=== PATIENT | female | born 1940 | race Caucasian/White ===

== ENCOUNTER 2016-04-01 10:57 | Inpatient (IN) | payer MEDICARE ==
[~2016-04-01] VITALS: Ht 170.2 cm; Wt 48.0 kg
[2016-04-03] MEDS ORDERED: MEMA1TAB PO (15:33)
[2016-04-03] MEDS ORDERED: AMLO5TAB2 PO (15:33)
[2016-04-03] MEDS ORDERED: DONE5TAB7 PO (15:33)
[2016-04-10] VITALS (9 sets, daily range): BP systolic 118–154; BP diastolic 60–77; PULSE 64–98; RESP 16–20; TEMP 97.5–98; O2SAT 100
[2016-04-10] MEDS ORDERED: PHENYLEPH/NS 1000 MCG/10 ML SYR IV ONE (12:00)
[2016-04-10] MEDS ORDERED: NEOSTIGMINE METHYLSULFATE 10 MG/10 ML VIAL IV PUSH ONE (12:00)
[2016-04-10] MEDS ORDERED: ePHEDrine/NS 25 MG/5 ML SYR IV ONE (12:00)
[2016-04-10] MEDS ORDERED: PROPOFOL 200 MG/20 ML AMP IV ONE (12:00)
[2016-04-10] MEDS ORDERED: ONDANSETRON HCL 4 MG/2 ML VIAL IV PUSH ONE (12:00)
[2016-04-10] MEDS ORDERED: LIDOCAINE 1%/EPINEPHrine 1:100,000 SOLN 30 ML VIAL ONE (12:02)
[2016-04-10] MEDS ORDERED: LIDOCAINE 0.5%/EPINEPHrine 1:200,000 SOLN 50 ML VIAL ONE (12:02)
[2016-04-10] MEDS ORDERED: ceFAZolin 1,000 MG/NS 100 ML IV SCH ×2 (12:15)
[2016-04-10] MEDS ORDERED: METOPROLOL TARTRATE 25 MG TAB PO PRN (12:15)
[2016-04-10] MEDS ORDERED: METRONIDAZOLE 500 MG/100 ML ISONTONIC SOLN IV SCH (12:15)
[2016-04-10] MEDS ORDERED: LACTATED RINGER'S 1000 ML IV SCH (12:15)
[2016-04-10] MEDS ORDERED: DEXT 5%-NACL 0.9% 1000 ML INJ 1,000 ML IV SCH (12:15)
[2016-04-10] MEDS ORDERED: INSULIN HUMAN REGULAR 1,000 UNITS/10 ML VIAL SQ PRN (12:15)
[2016-04-10] MEDS ORDERED: SODIUM CHLORID 0.9% 500 ML IV SCH (12:15)
[2016-04-10] MEDS ORDERED: ALVIMOPAN 12 MG CAPSULE - On Call PO SCH (12:30)
[2016-04-10] MEDS ORDERED: FAMOTIDINE 20 MG/2 ML VIAL ONE ×2 (13:23→13:45)
[2016-04-10] MEDS ORDERED: MIDAZOLAM HCL 2 MG/2 ML VIAL ONE ×2 (13:23→13:46)
[2016-04-10] MEDS ORDERED: DEXAMETHASONE SOD PHOS 4 MG/ML VIAL ONE ×2 (13:24→13:46)
[2016-04-10] MEDS ORDERED: ACETAMINOPHEN 1000 MG/100 ML VIAL IV ONE (13:45)
[2016-04-10] MEDS ORDERED: fentaNYL CITRATE 250 MCG/5 ML AMP ONE (13:46)
[2016-04-10] MEDS ORDERED: DICLOFENAC SODIUM 37.5 MG/ML VIAL IV PUSH ONE (13:46)
[2016-04-10] MEDS ORDERED: POTASSIUM CHLOR 40 MEQ PREMIX 100 ML IV PRN (15:30)
[2016-04-10] MEDS ORDERED: ACETAMINOPHEN/HYDROcodone 325 MG/5 MG TAB PO PRN ×2 (15:30)
[2016-04-10] MEDS ORDERED: ZOLPIDEM TARTRATE 5 MG TAB PO PRN (15:30)
[2016-04-10] MEDS ORDERED: ENALAPRILAT 1.25 MG/ML VIAL IV PRN (15:30)
[2016-04-10] MEDS ORDERED: POTASSIUM CHLOR 20 MEQ PREMIX 100 ML IV PRN (15:30)
[2016-04-10] MEDS ORDERED: NALOXONE HCL 0.4 MG/ML AMP IV PRN (15:30)
[2016-04-10] MEDS ORDERED: ONDANSETRON HCL 4 MG/2 ML VIAL IV PRN (15:30)
[2016-04-10] MEDS ORDERED: Post-op Orders (for Pharmacy) MISC XX ONE (15:30)
[2016-04-10] MEDS ORDERED: MORPHINE SULFATE 30 MG/30 ML PCA IV SCH (15:30)
[2016-04-10] MEDS: PCA - TOTAL MG MORPHINE DELIVERED PER SHIFT SCH ×2 (15:30→21:14)
[2016-04-10] MEDS ORDERED: SODIUM CHLORIDE 0.9% FLUSH 5 ML FLUSH IVF PRN (15:30)
[2016-04-10] MEDS ORDERED: BENZOCAINE 6 MG/MENTHOL 10 MG LOZENGE SUCK-ON PRN (15:30)
[2016-04-10] MEDS ORDERED: D5-LR + KCL 20 MEQ INJ 1,000 ML ONE (15:34)
--- NOTE | 2016-04-10 15:47 | MH ---
cc: JO CARIAS MD,CHAU Young M.D. DATE OF ADMISSION: 04/10/2016 CHIEF COMPLAINT Rectal prolapse HISTORY OF PRESENT ILLNESS This patient at a 75-year-old female patient who came to my office with a rectal prolapse. She was brought in by her granddaughters. She is fully demented 75 years old and really cannot give me no history. Over the past four weeks or so she has been having bouts of rectal prolapse and they are reducing it taken into the emergency room a couple of times. She is really unable to give me any meaningful history. Her granddaughters are taking care of her at this point. The patient's just recently approximately a week before I saw her in early to mid March. Dr. Luis Alfredo Merino is her doctor. PAST MEDICAL HISTORY, SOCIAL HISTORY AND FAMILY HISTORY Review of systems is otherwise negative other than her dementia. PHYSICAL EXAMINATION GENERAL: Well-developed, well-nourished female in no acute distress. SKIN: Skin is warm and dry. HEAD, EYES, EARS, NOSE, AND THROAT: Extraocular muscles intact. NECK: Supple. CHEST: Clear. ABDOMEN: Soft, nontender. No masses. RECTUM: Exam reveals a full rectal prolapse. EXTREMITIES: Range of motion within normal limits. NEUROLOGIC: Grossly normal. IMPRESSION Rectal prolapse PLAN Recommend abdominal proctopexy as she will have better bowel habits. I will also do a colonoscopy on her. MD FREDA Multani/alexys /3:34 PM /3:41 PM
[2016-04-10] MEDS: D5-LR + KCL 20 MEQ INJ 1,000 ML IV SCH ×2 (16:08→21:14)
[2016-04-10] MEDS ORDERED: DO NOT ADM ANY ANTICOAGULANT DRUGS XX PRN (16:15)
[2016-04-10 16:16] LABS: BASOPHIL % 0.5 % (0.0-2.0); EOSINOPHIL # 0.1 TH/MM3 (0-0.4); EOSINOPHIL % 0.6 % (0.0-4.0); HEMATOCRIT 35.1 % (35.0-46.0); HEMO FLAGS DIFF FINAL; LYMPH % 8.1 % (9.0-44.0); LYMPHOCYTE # 0.7 TH/MM3 (1.0-4.8); MEAN CELL VOLUME 89.2 FL (80.0-100.0); MEAN CORPUSCULAR HEMOGLOBIN 30.4 PG (27.0-34.0); MEAN CORPUSCULAR HGB CONC 34.1 % (32.0-36.0); MONO % 2.9 % (0.0-8.0); NEUT % 87.9 % (16.0-70.0); PLATELET COUNT 211 TH/MM3 (150-450); RED BLOOD COUNT 3.93 MIL/MM3 (4.00-5.30); RED CELL DISTRIBUTION WIDTH 13.5 % (11.6-17.2); WHITE BLOOD COUNT 9.1 TH/MM3 (4.0-11.0)
[2016-04-10 16:50] LABS: BICARBONATE 19.3 MEQ/L (21.0-32.0); POTASSIUM 3.3 MEQ/L (3.5-5.1)
[2016-04-10] MEDS: METOCLOPRAMIDE HCL 10 MG/2 ML VIAL IVS SCH ×2 (17:12→23:56)
[2016-04-10] MEDS: DONEPEZIL HCL 5 MG TAB PO SCH (21:00)
[2016-04-10] MEDS: SODIUM CHLORIDE 0.9% FLUSH 5 ML FLUSH IVF SCH (21:13)
[2016-04-10] MEDS: metroNIDAZOLE 500 MG INJ 100 ML IV SCH (21:13)
[2016-04-10] MEDS: FUROSEMIDE 20 MG/2 ML VIAL IV SCH (21:13)
[2016-04-11] VITALS (20 sets, daily range): BP systolic 93–111; BP diastolic 43–67; PULSE 61–100; RESP 16–18; TEMP 97–98.2; O2SAT 96–100
[2016-04-11] MEDS: D5-LR + KCL 20 MEQ INJ 1,000 ML IV SCH ×3 (05:20→21:55)
[2016-04-11] MEDS: metroNIDAZOLE 500 MG INJ 100 ML IV SCH ×2 (05:24→12:14)
[2016-04-11] MEDS: PCA - TOTAL MG MORPHINE DELIVERED PER SHIFT SCH ×2 (05:25→13:55)
[2016-04-11] MEDS: METOCLOPRAMIDE HCL 10 MG/2 ML VIAL IVS SCH ×4 (05:25→22:59)
[2016-04-11 07:13] LABS: AUTOMATED NEUTROPHIL # 6.7 TH/MM3 (1.8-7.7); BASOPHIL % 0.2 % (0.0-2.0); HEMATOCRIT 33.3 % (35.0-46.0); HEMO FLAGS DIFF FINAL; LYMPH % 14.8 % (9.0-44.0); LYMPHOCYTE # 1.3 TH/MM3 (1.0-4.8); MEAN CORPUSCULAR HEMOGLOBIN 30.9 PG (27.0-34.0); MEAN CORPUSCULAR HGB CONC 34.7 % (32.0-36.0); MONO % 8.1 % (0.0-8.0); NEUT % 76.9 % (16.0-70.0); PLATELET COUNT 247 TH/MM3 (150-450); RED BLOOD COUNT 3.74 MIL/MM3 (4.00-5.30); RED CELL DISTRIBUTION WIDTH 13.4 % (11.6-17.2); WHITE BLOOD COUNT 8.8 TH/MM3 (4.0-11.0)
[2016-04-11 07:22] LABS: BICARBONATE 23.3 MEQ/L (21.0-32.0); POTASSIUM 3.4 MEQ/L (3.5-5.1)
[2016-04-11] MEDS: PANTOPRAZOLE SODIUM 40 MG VIAL IVP SCH (08:57)
[2016-04-11] MEDS: MEMANTINE HCL 5 MG TAB PO SCH (08:58)
[2016-04-11] MEDS: SODIUM CHLORIDE 0.9% FLUSH 5 ML FLUSH IVF SCH ×2 (08:58→23:01)
[2016-04-11] MEDS: ALVIMOPAN 12 MG CAPSULE - Post-op dosing PO SCH ×2 (08:58→23:00)
[2016-04-11] MEDS: amLODIPine BESYLATE 5 MG TAB PO SCH (08:58)
[2016-04-11] MEDS: FUROSEMIDE 20 MG/2 ML VIAL IV SCH ×2 (08:58→22:59)
--- NOTE | 2016-04-11 15:31 | HHI.PR ---
Subjective Remarks Pt remains confused. Baseline. Vest restraint. Pt removed dressing and got OOB unassisted. No N or V. Tolerating FLD Objective Vital Signs Date Time Temp Pulse Resp B/P Pulse Ox O2 Delivery O2 Flow Rate FiO2 04/11/16 13:55 20 04/11/16 12:43 98.2 74 18 104/58 98 04/11/16 12:27 91 04/11/16 08:28 98 Nasal Cannula 21 04/11/16 08:14 98.0 92 18 100/50 96 04/11/16 08:14 92 04/11/16 06:00 85 04/11/16 05:25 16 04/11/16 05:00 84 04/11/16 04:00 69 04/11/16 04:00 97.0 61 16 93/50 98 04/11/16 03:00 92 04/11/16 02:00 92 04/11/16 01:00 88 04/11/16 00:00 77 04/11/16 00:00 98.2 80 16 105/43 100 04/10/16 23:00 98 04/10/16 22:00 94 04/10/16 21:14 16 04/10/16 21:00 90 04/10/16 20:00 64 04/10/16 20:00 97.5 85 16 118/60 100 04/10/16 19:50 100 04/10/16 19:00 92 04/10/16 18:00 96 04/10/16 17:00 97.6 70 16 123/69 100 04/10/16 16:30 97.5 67 15 130/68 98 Nasal Cannula 2 04/10/16 16:15 69 14 132/66 99 Nasal Cannula 2 04/10/16 16:07 15 04/10/16 16:00 95 14 120/73 99 Nasal Cannula 2 04/10/16 15:45 97 16 145/79 98 Nasal Cannula 2 04/10/16 15:34 97.2 97 15 161/67 92 Simple Mask 6 I/O 04/10/16 04/10/16 04/10/16 04/11/16 04/11/16 04/11/16 06:59 14:59 22:59 06:59 14:59 22:59 Intake Total 900 ml 1144 ml Output Total 300 ml 950 ml Balance 600 ml 194 ml Intake Oral 20 ml IV Total 1124 ml Other 900 ml Output Urine Total 950 ml Estimated Blood Loss 50 ml Other 250 ml # Bowel Movements 0 Result Diagram: 04/11/1652904/11/16529 Objective Remarks VS-S Abd: flat,soft. Dressing dry. 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
--- NOTE | 2016-04-11 20:49 | MP ---
cc: ANDREW LAURENLEONCIO DATE OF SURGERY 04/10/2016 PREOPERATIVE DIAGNOSIS Rectal prolapse POSTOPERATIVE DIAGNOSIS Rectal prolapse with cystocele and cholelithiasis. PROCEDURE 1. Abdominal proctopexy 2. Partial colonoscopy 3. Uterine and bladder pexy SURGEON Dr. Avi Thomas DIRECTOR OF REGION[employer] SALES Dr. Iverson ESTIMATED BLOOD LOSS Minimal. OPERATIVE FINDINGS This patient had a full rectal prolapse. She suffers from dementia, really can give me no meaningful history. At the time of surgery, she also had a large enterocele or cystocele causing bulging from the vagina. At colonoscopy, I was able to reach the splenic flexure but I could not go any further due to extreme redundancy of her sigmoid colon. She also had an extremely redundant transverse colon on intra-abdominal exam. We did palpate her whole colon and evacuate excess air from the colon. Exploration of the abdominal cavity revealed that she did have a single good size gallstone in her gallbladder with no inflammation and liver was palpably normal as was the stomach and the remainder of the small bowel. The uterus, tubes and ovaries were all present. An abdominal proctopexy was done and when closing the wound the bladder and uterus were pexed as well. OPERATIVE TECHNIQUE The patient was placed on table in the supine position. After adequate general endotracheal anesthesia, the colonoscope was introduced through the anal canal taken to the rectum and sigmoid colon, descending colon up to the splenic flexure, but due to the redundancy of the sigmoid colon I was unable to complete the colonoscopy. The prep was good. The scope was eventually withdrawn. The abdomen and perineum were then prepped and draped in usual manner and a midline incision was made and carried out from the pubis to the umbilicus in the linea alba and the peritoneal cavity was entered with the above-mentioned findings. Because the colon was dilated from air from the colonoscopy. we decompressed that through the rectum relatively easily given her patulous anus. Once this was done, our attention was turned to the sigmoid colon. It was mobilized as was the lateral pelvic peritoneum in the retrorectal space to the pelvic floor. Once this was done, 0 Prolene sutures were used, two on each side, to suture the peritoneum bilaterally to the sacral promontory effectively pexing the rectum up to the sacral promontory. Once the sutures were placed, they were tied in place and it was felt to be a good study repair without any constriction of the rectum. The abdominal cavity was irrigated thoroughly with saline solution, aspirated dry and the bowels were replaced in the abdominal cavity in an wire setter manner and the abdominal cavity was closed in a single layer using a double-stranded #1 PDS starting at the pubis and closing the abdomen. The bladder was pexed up as was the uterus in the process of closing her fascia, pexing the uterus by grabbing each round ligament. Once the abdominal fascia was closed, the subcutaneous tissue was irrigated thoroughly with saline solution, aspirated dry and the skin was closed with running 3-0 Vicryl subcuticular suture and a dressing was applied. Sponge, needle and instrument counts were reported as correct. Estimated blood loss was minimal. The patient tolerated the procedure well and left the operating room in good condition. MD FREDA Multani/ /3:37 PM /8:36 PM
[2016-04-11] MEDS ORDERED: ALVIMOPAN 12 MG CAPSULE PO SCH (21:00)
[2016-04-11] MEDS: DONEPEZIL HCL 5 MG TAB PO SCH (23:01)
[2016-04-12] VITALS (17 sets, daily range): BP systolic 118–148; BP diastolic 63–81; PULSE 72–98; RESP 16–20; TEMP 97–99.1; O2SAT 96–99
[2016-04-12 04:55] LABS: AUTOMATED NEUTROPHIL # 6.8 TH/MM3 (1.8-7.7); BASOPHIL % 0.3 % (0.0-2.0); EOSINOPHIL # 0.1 TH/MM3 (0-0.4); EOSINOPHIL % 0.6 % (0.0-4.0); HEMATOCRIT 36.3 % (35.0-46.0); HEMO FLAGS DIFF FINAL; LYMPH % 13.8 % (9.0-44.0); LYMPHOCYTE # 1.2 TH/MM3 (1.0-4.8); MEAN CELL VOLUME 88.3 FL (80.0-100.0); MEAN CORPUSCULAR HEMOGLOBIN 30.6 PG (27.0-34.0); MEAN CORPUSCULAR HGB CONC 34.7 % (32.0-36.0); MONO % 9.1 % (0.0-8.0); NEUT % 76.2 % (16.0-70.0); PLATELET COUNT 238 TH/MM3 (150-450); RED BLOOD COUNT 4.11 MIL/MM3 (4.00-5.30); RED CELL DISTRIBUTION WIDTH 13.3 % (11.6-17.2); WHITE BLOOD COUNT 8.9 TH/MM3 (4.0-11.0)
[2016-04-12 05:10] LABS: BICARBONATE 25.1 MEQ/L (21.0-32.0); POTASSIUM 3.2 MEQ/L (3.5-5.1)
[2016-04-12] MEDS: METOCLOPRAMIDE HCL 10 MG/2 ML VIAL IVS SCH ×4 (06:00→23:25)
[2016-04-12] MEDS: ALVIMOPAN 12 MG CAPSULE - Post-op dosing PO SCH ×2 (08:56→22:00)
[2016-04-12] MEDS: amLODIPine BESYLATE 5 MG TAB PO SCH (08:56)
[2016-04-12] MEDS: SODIUM CHLORIDE 0.9% FLUSH 5 ML FLUSH IVF SCH ×2 (08:57→22:00)
[2016-04-12] MEDS: PANTOPRAZOLE SODIUM 40 MG VIAL IVP SCH (08:57)
[2016-04-12] MEDS: FUROSEMIDE 20 MG/2 ML VIAL IV SCH ×2 (08:57→21:59)
[2016-04-12] MEDS: MEMANTINE HCL 5 MG TAB PO SCH (08:57)
[2016-04-12] MEDS ORDERED: POTASSIUM CHLOR 10 MEQ PREMIX 100 ML IV SCH (10:45)
[2016-04-12] MEDS: D5-LR + KCL 20 MEQ INJ 1,000 ML IV SCH (11:15)
[2016-04-12] MEDS ORDERED: POTASSIUM CHLORIDE 25 MEQ EFFERVESCENT TAB PO ONE (14:00)
[2016-04-12] MEDS: DONEPEZIL HCL 5 MG TAB PO SCH (22:00)
[2016-04-13] VITALS (7 sets, daily range): BP systolic 116–160; BP diastolic 68–89; PULSE 82–91; RESP 16–20; TEMP 97.8–98.8; O2SAT 96–99
[2016-04-13] MEDS: D5-LR + KCL 20 MEQ INJ 1,000 ML IV SCH ×2 (01:51→11:33)
[2016-04-13] MEDS: METOCLOPRAMIDE HCL 10 MG/2 ML VIAL IVS SCH ×3 (05:48→17:53)
[2016-04-13 07:25] LABS: BICARBONATE 28.3 MEQ/L (21.0-32.0)
[2016-04-13] MEDS: MEMANTINE HCL 5 MG TAB PO SCH (08:20)
[2016-04-13] MEDS: PANTOPRAZOLE SODIUM 40 MG VIAL IVP SCH (08:20)
[2016-04-13] MEDS: FUROSEMIDE 20 MG/2 ML VIAL IV SCH (08:20)
[2016-04-13] MEDS: amLODIPine BESYLATE 5 MG TAB PO SCH (08:20)
[2016-04-13] MEDS: ALVIMOPAN 12 MG CAPSULE - Post-op dosing PO SCH ×2 (08:20→20:57)
[2016-04-13] MEDS: SODIUM CHLORIDE 0.9% FLUSH 5 ML FLUSH IVF SCH ×2 (08:21→20:57)
[2016-04-13] MEDS: DONEPEZIL HCL 5 MG TAB PO SCH (20:57)
[2016-04-14] VITALS: BP 137/82; PULSE 94; RESP 20; TEMP 97.8; O2SAT 97
[2016-04-14] MEDS: METOCLOPRAMIDE HCL 10 MG/2 ML VIAL IVS SCH ×3 (00:29→11:24)
[2016-04-14] MEDS: D5-LR + KCL 20 MEQ INJ 1,000 ML IV SCH (00:29)
[2016-04-14 08:12] VITALS: BP 160/80; PULSE 82; RESP 17; TEMP 97.5; O2SAT 98
[2016-04-14] MEDS: amLODIPine BESYLATE 5 MG TAB PO SCH (08:21)
[2016-04-14] MEDS: ALVIMOPAN 12 MG CAPSULE - Post-op dosing PO SCH (08:21)
[2016-04-14] MEDS: PANTOPRAZOLE SODIUM 40 MG VIAL IVP SCH (08:21)
[2016-04-14] MEDS: MEMANTINE HCL 5 MG TAB PO SCH (08:21)
[2016-04-14] MEDS: SODIUM CHLORIDE 0.9% FLUSH 5 ML FLUSH IVF SCH (08:22)
--- NOTE | 2016-04-14 09:58 | HHI.DCPOC ---
Discharge Care Plan Diagnosis: (1) Rectal prolapse (2) Abdominal Proctopexy Your Health Problems Are: Incision/Drains Appetite Changes Irregular Bowel Function Exercise Tolerance Goals to Promote Your Health * To prevent worsening of your condition and complications * To maintain your health at the optimal level Directions to Meet Your Goals Take your medications as prescribed Follow your dietary instruction Follow activity as directed Keep your appointments as scheduled Take your immunizations and boosters as scheduled If your symptoms worsen call your PCP, if no PCP go to Urgent Care Center or Emergency Room Smoking is Dangerous to Your Health. Avoid second hand smoke Call the 24-hour hour crisis hotline for domestic abuse at Vince Thomas MD Apr 14, 2016 09:57
[2016-04-14] MEDS ORDERED: BISACODYL 10 MG SUPP RECTAL ONE (10:00)
--- NOTE | 2016-04-14 10:02 | HHI.PR ---
Subjective . Still mildly confused. No BMs but urinating well. Objective . VS-S Abd: soft,flat Assessment/Plan . Stable POD#4 D/C today home or assisted living depending on family desires. Vince Thomas MD Apr 14, 2016 10:02
[2016-04-14] MEDS ORDERED: MAGNESIUM HYDROXIDE SUSP 30 ML CUP PO ONE (10:15)
[2016-04-14 12:00] VITALS: BP 155/70; PULSE 86; RESP 17; TEMP 97.9; O2SAT 98
== END 2016-04-14 13:54 | disposition home or self-care (01) | DRG 331 ==
LOC: HSDI 04-10 11:40 → EDUNIT# 04-10 13:30 → HCIN 04-10 16:52 → N07A 04-13 00:35
PROVIDERS: ADMIT Colon & Rectal Surgery; ATTEND Colon & Rectal Surgery
PROC: 0TSB0ZZ Reposition Bladder, Open Approach (ICD-10-PCS; 2016-04-10)
PROC: 0DJD8ZZ Inspection of Lower Intestinal Tract, Via Natural or Artificial Opening Endoscopic (ICD-10-PCS; 2016-04-10)
PROC: 0DSP0ZZ Reposition Rectum, Open Approach (ICD-10-PCS; principal; 2016-04-10 13:48)
PROC: 0US90ZZ Reposition Uterus, Open Approach (ICD-10-PCS; 2016-04-10 13:48)
DX: K62.3 Rectal prolapse (principal); F03.90 Unspecified dementia, unspecified severity, without behavioral disturbance, psychotic disturbance, mood disturbance, and anxiety; N81.10 Cystocele, unspecified; K80.20 Calculus of gallbladder without cholecystitis without obstruction; Z78.1 Physical restraint status
CPT/HCPCS: 80048; 85025; 86850; 86900; 86901; 94150; C9113; J0131; J0690; J1100; J1130; J1940; J2250; J2270; J2370; J2405; J2710; J2765; J3010; J3480

== ENCOUNTER → 2016-04-03 | Outpatient (CLI) | payer MEDICARE ==
[~2016-04-03] MED LIST: AMLO5TAB2 PO; DONE5TAB7 PO; MEMA1TAB PO
[2016-04-03 12:05] LABS: AUTOMATED NEUTROPHIL # 3.6 TH/MM3 (1.8-7.7); BASOPHIL % 0.9 % (0.0-2.0); EOSINOPHIL # 0.1 TH/MM3 (0-0.4); EOSINOPHIL % 2.1 % (0.0-4.0); HEMATOCRIT 37.9 % (35.0-46.0); HEMO FLAGS DIFF FINAL; LYMPH % 24.6 % (9.0-44.0); LYMPHOCYTE # 1.3 TH/MM3 (1.0-4.8); MEAN CELL VOLUME 89.4 FL (80.0-100.0); MEAN CORPUSCULAR HEMOGLOBIN 30.8 PG (27.0-34.0); MEAN CORPUSCULAR HGB CONC 34.4 % (32.0-36.0); NEUT % 67.4 % (16.0-70.0); PLATELET COUNT 307 TH/MM3 (150-450); RED BLOOD COUNT 4.24 MIL/MM3 (4.00-5.30); RED CELL DISTRIBUTION WIDTH 13.5 % (11.6-17.2); WHITE BLOOD COUNT 5.4 TH/MM3 (4.0-11.0)
[2016-04-03 12:14] LABS: APTT (PATIENT) 26.5 SEC (24.3-30.1); PROTHROMBIN TIME - PATIENT 10.7 SEC (9.8-11.6)
[2016-04-03 12:31] LABS: ALKALINE PHOSPHATASE 70 U/L (45-117); ALT (GPT) 23 U/L (10-53); ANION GAP 8 MEQ/L (5-15); AST (GOT) 12 U/L (15-37); BICARBONATE 24.7 MEQ/L (21.0-32.0); BLOOD UREA NITROGEN 15 MG/DL (7-18); CHLORIDE 102 MEQ/L (98-107); GLOMERULAR FILTRATION RATE 70 ML/MIN (>89); GLUCOSE,FASTING 96 MG/DL (74-99); SODIUM (NA) 135 MEQ/L (136-145); TOTAL BILIRUBIN ADULT 0.6 MG/DL (0.2-1.0)
[2016-04-03 13:16] LABS: BLOOD, URINE NEG (NEG); GLUCOSE,URINE NEG (NEG); HYALINE CAST, URINE 1 /lpf (RARE); KETONE, URINE NEG (NEG); MUCUS URINE FEW /lpf (OCC); NITRITE,URINE NEG (NEG); PH, URINE 5.5 (5.0-8.5); SQUAMOUS EPITHELIAL CELL URINE 2 /hpf (0-5); URINE COLOR YELLOW (YELLW/STRAW)
--- NOTE | 2016-04-03 13:17 | RADRPT ---
EXAM DATE/TIME: 04/03/2016 12:57 [place] COMPARISON: No previous studies available for comparison. INDICATIONS : Evaluate for pneumonia, pneumothorax, or communicable disease. Pre op rectal surgery. MEDICAL HISTORY : None. SURGICAL HISTORY : None. ENCOUNTER: Initial ACUITY: 1 day PAIN SCORE: 0/10 LOCATION: Bilateral chest FINDINGS: PA and lateral views of the chest demonstrates hyperinflation which can be seen with CO PD. Minimal density right upper lobe. Heart is enlarged. The mediastinal contours are unremarkable. Osseous structures are intact. CONCLUSION: Hyperinflation which can be seen with COPD. Minimal density right upper lobe cou ld be atelectasis or infiltrate. Cardiomegaly. Jsoe De Jesus Barnhart MD on April 03, 2016 at 13:14 Board Certified Radiologist. This report was verified electronically.
[2016-04-03 13:24] LABS: COMMENT (UR) CULT NOT INDICATED; CULTURE IF INDICATED CULT NOT INDICATED
--- NOTE | 2016-04-04 13:33 | EKG ---
Date Performed: 04/03/2016 Time Performed: 12:10:22 PTAGE: 75 years EKG: Sinus rhythm WITH OCCASIONAL VENTRICULAR PREMATURE COMPLEXES POSSIBLE LEFT ATRIAL ENLARGEMENT BORDERLINE ECG NO PREVIOUS TRACING DOCTOR: Nicole Barksdale Interpretating Date/Time 04/04/2016 13:32:44
== END ==
LOC: CPRE 11:15
PROVIDERS: ATTEND Colon & Rectal Surgery
DX: Z01.810 Encounter for preprocedural cardiovascular examination (principal); Z01.811 Encounter for preprocedural respiratory examination; Z01.812 Encounter for preprocedural laboratory examination; K62.3 Rectal prolapse
CPT/HCPCS: 36415; 71020; 80053; 81001; 85025; 85610; 85730; 93005